=== PATIENT | male | born 1945 | race Caucasian/White ===

== ENCOUNTER 2019-09-22 16:02 | Observation (INO) | payer MEDICARE ==
--- NOTE | ~2019-09-22 | HEMODYNAMI ---
PATIENT:RENETTA SOBORNE MEDICAL RECORD: [id number] : 41 LOCATION:[facility] D2120 ADMISSION DATE: 09/22/19 Generatedon:09/23/201915:40 Patient name: RENETTA OSBORNE Patient #: [id number] : 1945 Date of study: 09/23/2019 Page: Of Hemodynamic Procedure Report Patient Data Patient Demographics Procedure consent was obtained First Name: RENETTA Gender: Male Last Name: [place] : 1945 Patient #: [id number] Age: 73 year(s) Race: SSN: [id number] Additional ID: [id number] Contact details Address: [place] [address] State: [place] City: [place] Zip code: [address] Admission Admission Data Admission Date: 09/22/2019 Admission Time: 16:02 Arrival Date: 09/23/2019 Arrival Time: 16:02 Admit Source: Other Insurance Payor: Medicare Room #: D.2120 [facility] #: [id number] Weight (lbs.): 171.96 Weight (kg.): 78 Lab Results Lab Result Date: 09/23/2019 Lab Result Time: 0:00 Biochemistry Name Units Result Min Max BUN mg/dl 16 --(---*)-- 7 18 Creatinine mg/dl 1.3 --(---*)-- 0.6 1.3 eGFR ml/min 57 *-(----)-- 90 120 NONAFRICAN CBC Name Units Result Min Max Hemoglobin g/dl 12.3 *-(----)-- 13.5 17.5 Procedure Procedure Types Cath Procedure Diagnostic Procedure C [facility] w/Coronaries Sedation Charges Moderate Sedation up to 15 minutes PCI Procedure Coronary Stent Coronary Stent Initial Hemochron ACT Test Procedure Description Procedure Date Procedure Date: 09/23/2019 Procedure Start Time: 15:17 Procedure End Time: 15:34 Procedure Staff Name Function Michael Boogie MD Performing Physician Yasmin Claudio RT Monitor Chaparrita Owusu RT Scrub Al Thibodeaux RN Nurse Procedure Data Cath Procedure Fluoroscopy Diagnostic fluoroscopy Total fluoroscopy Time: 2.6 time: 2.6 min min Diagnostic fluoroscopy Total fluoroscopy dose: 865 dose: 865 mGy mGy Contrast Material Contrast Material Type Amount (ml) Isovue 300 94 Entry Location Entry Primary Successful Side Size Upsize Upsize Entry Closure Succes sful Closure Location (Fr) 1 (Fr) 2 (Fr) Remarks Device Remarks Femoral Right 5 Fr Exoseal artery Estimated blood loss: 5 ml Diagnostic catheters Device Type Used For End Catheter Placement MULTIPACK JL 4.0 5Fr Left Coronary catheter Angiography MULTIPACK 3DRC 5Fr Right Coronary catheter Angiography MULTIPACK Pigtail 5 Fr LV Angiography catheter Procedure Complications No complications Procedure Medications Medication Administration Route Dosage 0.9% NaCl I.V. 100 ml/hr Oxygen etCO2 Nasal cannula 2 l/min Heparin Flush Bag added to field 2 bags (1000units/500ml NS) Lidocaine 2% added to field 20 Versed I.V. 2 mg Fentanyl I.V. 100 mcg Heparin Bolus I.V. 5000 units Integrilin (Bolus I.V. 6.8 ml 2mg/ml) Integrilin (Bolus wasted 3.2 ml 2mg/ml) Vasotec I.V. 2.5 mg Plavix P.O. 150 mg Hemodynamics Rest HGB: 12.3 (g/dl) Heart Rate: 54 (bpm) Pressure Samples Time Site Value (mmHg) Purpose Heart Use Rate(bpm) 15:23 LV 206/12,18 Snapshot 74 15:23 AO 186/72(114) Pullback 68 15:23 LV 192/15,22 Pullback 68 Gradients Valve Time Site 1 Site 2 Mean SEP/DFP Peak To Heart Use (mmHg) (sec/min) Peak Rate (mmHg) (bpm) Aortic 15:23 LV AO 11 21 6 68 192/15,22 186/72(114) Calculations Valve P-P Mean Valve Index Valve Source Name Gradient Area Flow (cm2) Aortic 6 11 6 11 Snapshots Pre Cath Intra NCS Post Cath Vital Signs Time Heart Resp SPO2 etCO2 NIBP (mmHg) Rhythm Pain Sedation Rate (ipm) (%) (mmHg) Status Level (bpm) 15:03:46 53 16 100 35.9 201/83(162) NSR 0 (11) 10(A) , No pain 15:08:08 55 25 100 36.7 175/85(148) NSR 0 (11) 10(A) , No pain 15:13:26 58 14 99 29.9 163/78(134) NSR 0 (11) 10(A) , No pain 15:17:48 54 8 96 36.7 181/78(165) NSR 0 (11) 9(A) , No pain 15:22:10 66 10 98 41.2 178/85(148) NSR 0 (11) 9(A) , No pain 15:26:38 65 17 99 9.7 176/75(143) NSR 0 (11) 9(A) , No pain 15:31:03 64 14 99 41.9 169/78(143) NSR 0 (11) 10(A) , No pain Medications Time Medication Route Dose Verified Delivered Reason Notes Effectiveness by by 15:05:01 0.9% NaCl I.V. 100 Al Al Per physician ml/hr Morelia Thibodeaux RN RN 15:05:12 Oxygen etCO2 2 Al Al for low 02 sats Nasal l/min Morelia Thibodeaux cannula RN RN 15:05:53 Heparin Flush added 2 Al Al used for Bag to bags Morelia Thibodeaux procedure (1000units/500ml [facility] RN RN NS) 15:06:04 Lidocaine 2% added 20ml Al Al for local to vial Morelia Thibodeaux anesthetic field RN RN 15:14:29 Versed I.V. 2 mg Al Al for sedation Morelia Thibodeaux RN RN 15:14:37 Fentanyl I.V. 100 Al Al for sedation mcg Morelia Thibodeaux RN RN 15:28:02 Heparin Bolus I.V. 5000 Al Al for units Morelia Thibodeaux anticoagulation RN RN 15:28:18 Integrilin I.V. 6.8 Al Al for (Bolus 2mg/ml) ml Morelia Thibodeaux antiplatelet RN RN therapy 15:28:27 Integrilin wasted 3.2 Al Al to sharp's (Bolus 2mg/ml) ml Morelia Thibodeaux RN RN 15:32:41 Vasotec I.V. 2.5 Al Al for mg Morelia Thibodeaux hypertension RN RN 15:33:05 Plavix P.O. 150 Al Melendez for mg Morelia Thibodeaux antiplatelet RN RN therapy Procedure Log Time Note 14:43:25 Diagnostic Cath Status : Urgent 14:45:25 Informed consent obtained and on chart 14:51:04 Admit Source: Other 14:51:15 Arrival Date: 09/23/2019 4:02:00 PM 14:52:10 Patient Weight : 171.96 lbs 14:52:25 Insurance Payor : Medicare 14:53:39 Lab Result : BUN 16 mg/dl 14:53:39 Lab Result : Hemoglobin 12.3 g/dl 14:53:39 Lab Result : eGFR NONAFRICAN 57 ml/min 14:53:39 Lab Result : Creatinine 1.3 mg/dl 14:53:46 Procedure Status Urgent Heart Cath (IP). 14:53:47 Yasmin Claudio RT(R) sent for patient. Start room use. 14:53:48 Time tracking: Regular hours (M-F 7:00 - 5:00) 14:53:52 Plan of Care:Hemodynamics will remain stable., Cardiac rhythm will remain stable., Comfort level will be maintained., Respiratory function will remain adequate., Patient/ family verbilizes understanding of procedure., Procedure tolerated without complication., Recovers from procedure without complications.. 14:57:20 Patient received from Med II to CCL 2 Alert and oriented. Tansferred to table in Supine position. 15:01:17 Vital chart was started 15:01:32 Correct patient and procedure confirmed by team. 15:01:33 ECG and BP/O2 sat monitors applied to patient. 15:01:37 Baseline sample Acquired. 15:01:46 Rhythm: sinus rhythm 15:03:16 Full Disclosure recording started 15:03:19 H&P Date Dictated: 09/23/2019 New H&P dictated by physician.. 15:03:25 Pre-procedure instructions explained to patient. 15:03:25 Pre-op teaching completed and patient verbalized understanding. 15:03:27 Family in patients room. 15:03:29 Patient NPO since Midnight. 15:03:31 Is the patient allergic to Iodine/contrast media? No. 15:03:32 Was the patient premedicated? Yes 15:03:33 Is patient on blood thinner?Yes 15:03:35 ACC The patient was administered the following blood thiners within the last 24 hours: ACCPlavix 15:03:37 Patient diabetic? Yes. 15:03:39 If diabetic: On Metformin? Yes 15:03:46 If on Metformin: Last Dose? 09/22/2019 15:03:59 Previous problem with sedation/anesthesia? No ? 15:04:00 Snore? Yes 15:04:04 Sleep apnea? No 15:04:05 Deviated septum? No 15:04:07 Opens mouth fully? Yes 15:04:08 Sticks out tongue? Yes 15:04:13 Airway obstruction? Yes emphysema 15:04:16 Dentures? Yes intight 15:04:19 Pre procedure: right dorsailis pedis pulse 2+ Normal; easily identifiable; not easily obliterated 15:04:21 Pre procedure: left dorsailis pedis pulse 2+ Normal; easily identifiable; not easily obliterated 15:04:23 Patient pain scale 0/10 ?. 15:04:35 IV patent on arrival in left forearm with 0.9% NaCl at [facility]. 15:04:39 Lab results completed and on chart. 15:05:01 0.9% NaCl 100 ml/hr I.V. was administered by Al Thibodeaux RN; Per physician; Verbal order read back and verified. 15:05:12 Oxygen 2 l/min etCO2 Nasal cannula was administered by Al Thibodeaux RN; for low 02 sats; Verbal order read back and verified. 15:05:53 Heparin Flush Bag (1000units/500ml NS) 2 bags added to field was administered by Al Thibodeaux RN; used for procedure; Verbal order read back and verified. 15:06:04 Lidocaine 2% 20ml vial added to field was administered by Al Thibodeaux RN; for local anesthetic; Verbal order read back and verified. 15:07:34 Right groin area was prepped with chlora-prep and draped in sterile fashion 15:07:35 Alarms reviewed by R. N. 15:07:35 Sharps counted by scrub and verified by R.N. 15:07:36 Physician arrived 15:07:36 --------ALL STOP TIME OUT------ 15:07:41 Final Timeout: patient, procedure, and site verified with staff and physician. All members of the team are in agreement. 15:07:43 Right groin site verified by team. 15:07:47 Fire Safety Assessment: A--An alcohol-based skin anteseptic being used preoperatively., C--Open oxygen or nitrous oxide is being used., D--An ESU, laser, or fiber-optic light is being used. 15:07:50 Physical assessment completed. ASA score P 2 - A patient with mild systemic disease as per Michael Boogie MD. 15:08:26 3a) 45-59 Moderately reduced kidney function. 15:09:11 Maximum allowable contrast dose (3.7 X eGFR X 0.75)157 ml. 15:09:15 Sedation plan: IV Moderate Sedation Medication:Versed, Fentanyl 15:09:20 Use device set Femoral Dx 15:09:21 ACIST Syringe (92686) opened to sterile field. 15:09:21 Bag Decanter (2002S) opened to sterile field. 15:09:22 Medline Cath Pack ([id number]) opened to sterile field. 15:09:23 ACIST Hand Control (93328) opened to sterile field. 15:09:26 ACIST Manifold (58226) opened to sterile field. 15:09:27 DIAGNOSTIC Multipack 5Fr catheter set (VZ2700) opened to sterile field. 15:09:31 Tegaderm 4 x 4 (1626W) opened to sterile field. 15:09:35 SHEATH 5FR [place] (PMZ218) opened to sterile field. 15:09:36 EMERALD Guide Wire (417-404) opened to sterile field. 15:10:24 Zero performed for pressure channel P1 15:14:29 Versed 2 mg I.V. was administered by Al Thibodeaux RN; for sedation; Verbal order read back and verified. 15:14:37 Fentanyl 100 mcg I.V. was administered by Al Thibodeaux RN; for sedation; Verbal order read back and verified. 15:17:25 Procedure started. 15:17:29 Local anesthetic to right femoral artery with Lidocaine 2% by Michael Boogie MD.INITIAL ACCESS ONLY 15:18:42 Zero performed for pressure channel P1 15:19:04 A 5 Fr sheath was inserted into the Right Femoral artery 15:20:10 A MULTIPACK JL 4.0 5Fr catheter was advanced over the wire and used for Left Coronary Angiography. 15:20:22 LCA angiography performed. 15:20:25 Injector settings: Ml/sec: 3, Volume: 6, 15:21:16 Catheter removed. 15:21:24 A MULTIPACK 3DRC 5Fr catheter was advanced over the wire and used for Right Coronary Angiography. 15:21:31 SHEATH 6FR [place] (XWU959) opened to sterile field. 15:21:40 WHISPER 300cm guide wire ([id number]) opened to sterile field. 15:21:41 INFLATOR Merit BasixCompak (DE7645) opened to sterile field. 15:22:19 RCA angiography performed. 15:22:26 Injector settings: Ml/sec: 3, Volume: 6, 15:22:29 ACCDominant side:Left 15:22:35 Catheter removed. 15:22:49 A MULTIPACK Pigtail 5 Fr catheter was advanced over the wire and used for LV Angiography. 15:23:32 LV hemodynamics recorded. 15:23:33 LV gram done using CORDOVA 15:23:36 Injector settings: Ml/sec: 5, Volume: 15, 15:23:43 EF : 55 % 15:23:55 Catheter removed. 15:23:58 Proceeding to intervention. 15:24:42 GUIDE 6FR XBLAD 4.0 catheter ([id number]) opened to sterile field. 15:24:51 6 Fr xblad 4 guide catheter was inserted over the wire 15:25:15 whisper wire advanced. 15:28:02 Heparin Bolus 5000 units I.V. was administered by Al Thibodeaux RN; for anticoagulation; Verbal order read back and verified. 15:28:18 Integrilin (Bolus 2mg/ml) 6.8 ml I.V. was administered by Al Thibodeaux RN; for antiplatelet therapy; Verbal order read back and verified. 15:28:27 Integrilin (Bolus 2mg/ml) 3.2 ml wasted was administered by Al Thibodeaux RN; to sharp's; Verbal order read back and verified. 15:29:14 ACC Pre-intervention CARLA Flow is 3. 15:29:22 Pre PCI Site: Ruby dCirc has 80% stenosis. 15:30:14 Place stent Inflation Number: 1 A MARK OTW 3.0 x 26 stent ([id number]) was prepped and advanced across the Dist CX 80. The stent was deployed at 14 BARI for 0:30 (min:sec) 0. 15:31:02 Stent catheter was removed intact over wire. 15:31:03 Wire removed. 15:31:03 Guide catheter removed. 15:31:36 EXOSEAL 6Fr (EX600) opened to sterile field. 15:31:42 ACC Post-intervention CARLA Flow is 3. 15:31:57 Sheath removed intact; hemostasis achieved with Exoseal to the Right Femoral artery. 15:31:59 Procedure ended.(Physican Out) 15:32:10 Fluoroscopy time 02.60 minutes. 15:32:21 Flurop Dose total: 865 15:32:21 Fluoroscopy dose: 865 mGy 15:32:38 Dose Area Product 29534 mGy/cm. 15:32:41 Vasotec 2.5 mg I.V. was administered by Al Thibodeaux RN; for hypertension; Verbal order read back and verified. 15:32:43 Contrast amount:Isovue 300 94ml. 15:32:46 Maximum allowable dose exceeded? No. 15:32:47 Sharps counted by scrub and verified by R.N. 15:32:48 Insertion/operative site no bleeding no hematoma. 15:32:51 Post-op/insertion site Right Femoral artery dressed using a 4 x 4 and Tegaderm. 15:32:58 Post procedure rhythm: unchanged. 15:33:02 Estimated blood loss: 5 ml 15:33:05 Plavix 150 mg P.O. was administered by Al Thibodeaux RN; for antiplatelet therapy; Verbal order read back and verified. 15:33:06 Post procedure instruction explained to patient.Patient verbalizes understanding. 15:33:07 Patient needs reinforcement of post procedure teaching. 15:33:21 Procedure type changed to Cath procedure, Diagnostic procedure, [facility], [facility] w/Coronaries, Sedation Charges, Moderate Sedation up to 15 minutes, PCI procedure, Coronary Stent, Coronary Stent Initial, Hemochron ACT Test 15:33:54 Procedure and supply charges have been captured, reviewed, submitted and are correct. 15:33:58 Procedure Complication : No complications 15:34:01 Vital chart was stopped 15:34:02 [facility] Findings: MVD- PCI performed (see procedure note) 15:34:05 Operative report dictated upon procedure completion. 15:34:06 See physician's report for complete and final results. 15:34:08 Report given to Med II. 15:34:10 Procedure ended. 15:34:10 Full Disclosure recording stopped 15:34:16 End room use (Document Last) 15:39:34 ACT drawn and resulted at 274 seconds. (normal therapeutic range 180-240 seconds). Intervention Summary Intervention Notes Time ActionType Lesion and Equipment Action# Pressure Duration Attributes Used 15:30:14 Place stent Dist CX MARK OTW 3.0 1 14 00:30 x 26 stent ([id number]) Device Usage Item Name Manufacture Quantity Catalog Hospital Part Current Mini mal Lot# / Number Charge Number Stock Stock Serial# Code ACIST Syringe Acist 1 17770 356402 232164 335807 20 (17165) Medical Systems Inc Bag Decanter Microtek 1 2001S 836916 36318 127049 5 (2001S) Medical Inc. Medline Cath Medline 1 [id number] 708841 41311 667389 5 Pack ([id number]) ACIST Hand Acist 1 64278 411839 788276 918007 5 Control Medical (21745) Systems Inc ACIST Acist 1 65557 174347 939276 869937 5 Manifold Medical (26645) Systems Inc DIAGNOSTIC Cardinal 1 BG3872 472798 64380 879807 30 Multipack 5Fr Health catheter set (RT5031) Tegaderm 4 x 3M 1 1626W 085596 826582 003935 5 4 (1626W) SHEATH 5FR Terumo 1 XGD960 707410 308913 994593 5 [place] (RQR032) EMERALD Guide Cardinal 1 502-455 725899 080425 371043 5 Wire Health (502-455) MULTIPACK JL Cardinal 1 226675 5 4.0 5Fr Health catheter MULTIPACK Cardinal 1 556884 5 3DRC 5Fr Health catheter SHEATH 6FR Terumo 1 YTR238 309646 918234 055089 40 [place] (NCA247) WHISPER 300cm Wei 1 [id number] 723106 319947 982194 5 guide wire Vascular (0398662RN) INFLATOR Merit 1 VN9211 266915 273248 403777 15 [facility] Medical BasixCompak (LQ0678) MULTIPACK Cardinal 1 286933 5 Pigtail 5 Fr Health catheter GUIDE 6FR Cardinal 1 37030301 577421 735385 575576 3 XBLAD 4.0 Health catheter (45328706) MARK OTW 3.0 Medtronic 1 [id number] 012549 5502805 379979 5 [id number] x 26 stent ([id number]) EXOSEAL 6Fr Cardinal 1 EX600 437509 414400 577266 10 (EX600) Health Signature Audit Shock Stage Time Signature Unsigned Intra-Procedure 09/23/2019 Yasmin Claudio 3:34:50 PM RT(R) Intra-Procedure 09/23/2019 Al 3:35:17 PM Morelia MODI Intra-Procedure 09/23/2019 Yasmin Claudio 3:40:10 PM RT(R) Signatures Performing Physician : Signature : Michael Boogie MD Date : Time : Monitor : Yasmin Claudio RT Signature : Date : Time : Nurse : Al Thibodeaux Signature : RN Date : Time : [facility] [address] [place] [address]
--- NOTE | 2019-09-22 16:20 | NUR ---
PATIENT ARRIVED TO UNIT AT THIS TIME. PATIENT AMBULATED ONTO UNIT A DIRECT ADMISSION FROM OFFICE IN [place] FOR COMPLAINTS OF NOT BEING ABLE TO GET A GOOD DEEP BREATH ASSOCIATED WITH SLIGHT PAIN IN LEFT SHOULDER AND LEFT BACK. PATIENT IS ALERT/ORIENTED, RESP EVEN AND UNLABORED AT THIS TIME. PATIENT HAS FAMILY AT BEDSIDE AT THIS TIME. NO DISTRESS.
--- NOTE | 2019-09-22 17:30 | NUR ---
20 GAUGE IV PLACED TO RIGHT HAND X 1 STICK. GOOD BLOOD RETURN, EASY FLUSH. TAPED,DATED AND SECURED. PATIENT TOLERATED IV PLACEMENT WELL.
[2019-09-22] MEDS ORDERED: FERROUS SULFAT325 MG PO (17:48)
[2019-09-22] MEDS ORDERED: PAXIL20 MG PO (17:51)
[2019-09-22] MEDS ORDERED: TRELEGY ELLIPT1 EACH INH (17:51)
[2019-09-22] MEDS ORDERED: COREG6.25 MG PO (17:52)
[2019-09-22] MEDS ORDERED: NORVASC5 MG PO (17:53)
[2019-09-22] MEDS ORDERED: GLUCOPHAGE1000 MG PO (17:53)
[2019-09-22] MEDS ORDERED: AVAPRO300 MG PO (17:54)
[2019-09-22] MEDS ORDERED: PLAVIX75 MG PO (17:54)
[2019-09-22] MEDS ORDERED: SINGULAIR10 MG PO (17:54)
[2019-09-22] MEDS ORDERED: PROTONIX40 MG PO (17:55)
[2019-09-22] MEDS ORDERED: PRAVACHOL20 MG PO (17:55)
[2019-09-22] MEDS ORDERED: NIASPAN750 MG PO (17:56)
[2019-09-22] MEDS ORDERED: VITAMIN D5000 UNI1 PO (17:56)
[2019-09-22] MEDS ORDERED: VENTOLIN HFA [SP8 GM INH (17:57)
--- NOTE | 2019-09-22 18:26 | NUR ---
IV FLUIDS INFUSING AT THIS TIME. NO DISTRESS.
[2019-09-22 18:40] LABS: BASOPHILS 0.2 % (0-2); EOSINOPHILS 4.7 % (0-7); HEMATOCRIT 37.3 % (42.0-54.0); IMMATURE GRANULOCYTES 0.3 % (0-5); LYMPHOCYTES 30.9 % (15-50); MCH 29.6 pg (26.0-34.0); MCHC 32.2 g/dL (31.0-37.0); MCV 91.9 fL (80.0-100.0); MEAN PLATELET VOLUME 10.4 fL (7.4-10.4); MONOCYTES 6.7 % (2-11); NEUTROPHILS 57.2 % (40-80); PLATELET COUNT 219 10x3/uL (130-400); RBC 4.06 10x6/uL (4.20-6.10); RDW 13.7 % (11.5-14.5)
--- NOTE | 2019-09-22 18:42 | NUR ---
EKG COMPLETED AND PLACED ON CHART.
[2019-09-22 19:06] LABS: CALCIUM 8.4 mg/dL (8.5-10.1); CREATININE - SERUM 1.3 mg/dL (0.6-1.3); MAGNESIUM - SERUM 1.2 mg/dL (1.8-2.4); PHOSPHOROUS 2.2 mg/dL (2.5-4.9)
--- NOTE | 2019-09-22 19:46 | NUR ---
REPORT RECEIVED AND ROUNDING COMPLETE. PATIENT LAYING IN BED IN SUPINE POSITION WATCHING TV, FAMILY AT BEDSIDE. PATIENT IS REQUESTING SOMETHING FOR SINUS DRAINAGE. WILL FOLLOW UP WITH THIS. NO OTHER NEEDS AT THIS TIME. PATIENT IS A&O X4 AND SHOWS NO S/SX OF DISTRESS. PIV TO THE RIGHT HAND WITH FLUIDS RUNNING AT THIS TIME. CALL LIGHT WTIHIN REACH AND BED IN LOWEST LOCKED POSITION.
[2019-09-22 20:29] VITALS: BP 175/60
[2019-09-22 20:53] LABS: CREATINE KINASE 97 UL (21-232)
[2019-09-22 21:02] LABS: TROPONIN-I < 0.017 ng/mL (0.000-0.060)
[2019-09-23 00:33] VITALS: BP 125/44
[2019-09-23 01:05] LABS: CKMB 0.7 U/L (0.0-3.6); CREATINE KINASE 85 UL (21-232); TROPONIN-I < 0.017 ng/mL (0.000-0.060)
[2019-09-23 05:51] VITALS: BP 134/55
--- NOTE | 2019-09-23 06:37 | NUR ---
0600 EKG MACHINE NOT ON FLOOR TO DO 0600 EKG SO I HAD APPLIQUE CUTTER PRINT ONE OFF.
[2019-09-23 07:14] LABS: BASOPHILS 0.2 % (0-2); EOSINOPHILS 4.4 % (0-7); HEMATOCRIT 38.5 % (42.0-54.0); HEMOGLOBIN 12.3 g/dL (13.5-17.5); IMMATURE GRANULOCYTES 0.2 % (0-5); LYMPHOCYTES 29.6 % (15-50); MCH 29.1 pg (26.0-34.0); MCHC 31.9 g/dL (31.0-37.0); MCV 91.2 fL (80.0-100.0); MEAN PLATELET VOLUME 10.5 fL (7.4-10.4); MONOCYTES 7.9 % (2-11); NEUTROPHILS 57.7 % (40-80); PLATELET COUNT 221 10x3/uL (130-400); RBC 4.22 10x6/uL (4.20-6.10); RDW 13.9 % (11.5-14.5); WBC 5.4 10x3/uL (4.8-10.8)
[2019-09-23 07:36] LABS: INR 0.99 (0.85-1.17); PROTIME 13.1 SECONDS (11.6-15.0)
[2019-09-23 07:37] LABS: APTT 30.3 SECONDS (22.8-39.4)
[2019-09-23 07:57] LABS: CALC OSMOLALITY 288 mosm/kg (275-300); CALCIUM 8.1 mg/dL (8.5-10.1); CARBON DIOXIDE 26.7 mmol/L (21.0-32.0); CHLORIDE - SERUM 107 mmol/L (98-107); CHOL - HDL RATIO 4.8 ratio (2.3-4.9); CHOLESTEROL, TOTAL 133 mg/dL (0-200); CKMB 0.8 U/L (0.0-3.6); CREATINE KINASE 82 UL (21-232); CREATININE - SERUM 1.3 mg/dL (0.6-1.3); GLUCOSE 152 mg/dL (74-106); HDL CHOLESTEROL 28 mg/dL (32-96); LDL CHOLESTEROL 71 mg/dL (0-100); LDL-HDL RATIO 2.5 ratio (1.5-3.5); MAGNESIUM - SERUM 1.3 mg/dL (1.8-2.4); POTASSIUM - SERUM 3.9 mmol/L (3.5-5.1); PRO BNP 243 pg/mL (0-450); SODIUM 143 mmol/L (136-145); TRIGLYCERIDE 174 mg/dL (30-200); TROPONIN-I < 0.017 ng/mL (0.000-0.060); UREA NITROGEN 16 mg/dL (7-18); eGFR NON AFRICAN AMERICAN 57 mL/min (90-120)
[2019-09-23 08:00] LABS: PHOSPHOROUS 2.9 mg/dL (2.5-4.9)
[2019-09-23 09:23] LABS: CHOL - HDL RATIO 5.3 ratio (2.3-4.9); LDL-HDL RATIO 2.9 ratio (1.5-3.5)
[2019-09-23 09:24] VITALS: BP 164/65
[2019-09-23 12:15] VITALS: Wt 78.2 kg
[2019-09-23 13:06] VITALS: BP 149/62
--- NOTE | 2019-09-23 16:00 | NUR ---
PT RETURN FROM EXERCISE SCIENTIST. AAO. NO S/S OF DISTRESS. RIGHT FEM CATH SITE C/D/I WITH NO S/S OF HEMATOMA PRESENT. NS INFUSING @200ML/HR VIA R.HAND PIV. WILL CTM.
[2019-09-23 18:00] VITALS: BP 148/63
--- NOTE | 2019-09-23 19:40 | NUR ---
RECEIVED BEDSIDE REPORT. PATIENT IS ALERT AND ORIENTED, RESTING COMFORTABLY IN BED. RESPIRATIONS ARE EVEN AND UNLABORED. NO S/S OF DISTRESS. NO C/O PAIN. CALL LIGHT WITHIN REACH. WILL CPOC.
[2019-09-23 20:00] VITALS: BP 135/50
[2019-09-24] VITALS: BP 134/56
--- NOTE | 2019-09-24 01:04 | NUR ---
PATIENT IS RESTING COMFORTABLY IN BED. RESPIRATIONS ARE EVEN AND UNLABORED. NO S/S OF DISTRESS. NO C/O PAIN. CALL LIGHT WITHIN REACH. WILL CPOC.
--- NOTE | 2019-09-24 03:35 | NUR ---
PATIENT RESTING COMFORTABLY IN BED. RESPIRATIONS ARE EVEN AND UNLABORED. NO S/S OF DISTRESS. NO C/O PAIN. CALL LIGHT WITHIN REACH.
[2019-09-24 04:00] VITALS: BP 145/65
[2019-09-24 06:41] LABS: BASOPHILS 0.2 % (0-2); HEMATOCRIT 35.3 % (42.0-54.0); HEMOGLOBIN 11.1 g/dL (13.5-17.5); IMMATURE GRANULOCYTES 0.2 % (0-5); LYMPHOCYTES 24.3 % (15-50); MCH 28.7 pg (26.0-34.0); MCHC 31.4 g/dL (31.0-37.0); MCV 91.2 fL (80.0-100.0); MEAN PLATELET VOLUME 10.8 fL (7.4-10.4); MONOCYTES 8.2 % (2-11); NEUTROPHILS 64.1 % (40-80); PLATELET COUNT 205 10x3/uL (130-400); RBC 3.87 10x6/uL (4.20-6.10); WBC 6.3 10x3/uL (4.8-10.8)
[2019-09-24 06:50] LABS: ANION GAP 12.1 mmol/L (8-16); CARBON DIOXIDE 25.8 mmol/L (21.0-32.0); CREATININE - SERUM 1.2 mg/dL (0.6-1.3); MAGNESIUM - SERUM 1.3 mg/dL (1.8-2.4); POTASSIUM - SERUM 3.9 mmol/L (3.5-5.1)
[2019-09-24 09:56] VITALS: BP 142/52
[2019-09-24] MEDS ORDERED: BAYER CHEWABLE81 MG PO (10:28)
--- NOTE | 2019-09-24 11:03 | NUR ---
IV AND TELEMETRY DCD. DC PLANS GIVEN. UNDERSTANDING VOICED. WAITING FOR RIDE.
--- NOTE | 2019-09-24 12:06 | NUR ---
ESCORTED TO CAR BY W/C.
--- NOTE | 2019-09-25 15:26 | CN ---
PATIENT NAME:RENETTA OSBORNE MEDICAL RECORD: [id number] : 41 LOCATION:D. D.2120 ADMIT DATE: 09/22/19 ACCOUNT: [id number] CONSULTING PHYSICIAN: BALTAZAR DENNIS MD REFERRING PHYSICIAN: THEE POLLARD DO DATE OF CONSULTATION: 09/23/2019 HISTORY OF PRESENT ILLNESS: A 73-year-old gentleman with a known history of coronary artery disease status post intervention. He has done fairly well up until the last 2 weeks of progressive chest tightness and pressure with exertion, point of rest symptomology Sunday, presented to the primary care office who admitted. We are asked to see him for acute coronary syndrome. PAST MEDICAL HISTORY: Includes; 1. History of coronary artery disease as described above. 2. Hypertension. 3. Hyperlipidemia. 4. Diabetes mellitus. 5. Hypertension. ALLERGIES: None known. MEDICATIONS: Include metformin 1 gram b.i.d., montelukast at bedtime, Paxil 20 at bedtime, amlodipine 5 every day, pravastatin 80 at bedtime, Niacin ER 750 every day, Avapro 300 every day, Carvedilol 6.25 b.i.d., Plavix 75 every day, albuterol two puffs every 4 hours p.r.n. SOCIAL HISTORY: Nonsmoker, nondrinker. Easily able to care of all his ADLs except for the last 2 weeks. REVIEW OF SYSTEMS: The patient reports easy bruising but reports no swollen glands. The patient reports no fever, no night sweats, no significant weight gain, no significant weight loss. No significant exercise tolerance. The patient reports no dry eyes, no irritation, no vision change. Patient reports no difficulty hearing and no ear pain. Patient reports no frequent nose bleeds or nose and sinus problems. Patient reports on arm pain on exertion. No shortness of breath while lying down. No history of heart murmur. Patient reports no cough, no wheezing or coughing up blood. Patient reports no abdominal pain, no vomiting. Normal appetite. No diarrhea and not vomiting blood. No nausea and no constipation. Patient reports no incontinence. No difficulty urinating. No hematuria. No increased frequency. Patient reports no muscle aches. No weakness, no arthralgias, no back pain. No swelling of the extremities. Patient reports no abnormal mole, no jaundice, no rashes. Reports no loss of consciousness. No weakness and no numbness. No seizures, dizziness, or headaches. The patient reports no depression, no sleep disturbance, feeling safe in a relationship and no alcohol abuse. Patient reports on fatigue. Reports no runny nose or sinus pressure. No itching, no hives, and no frequent sneezing. PHYSICAL EXAMINATION: GENERAL: Pleasant, no acute distress, appears stated age. VITAL SIGNS: Blood pressure 134/55, pulse 64 and regular. HEENT: Normocephalic, atraumatic. NECK: No JVD or bruit. HEART: Regular. CONSULT REPORT [id number] RENETTA OSBORNE LUNGS: Good air excursion. ABDOMEN: Soft, nontender. EXTREMITIES: Pulses 2+. No edema. IMPRESSION: Acute coronary syndrome rapidly progressive at rest, class IV angina. PLAN: For angiography, intervention based on the above. TRANSINT:[id number] Voice Confirmation ID: [id number] DOCUMENT ID: [id number] BALTAZAR DENNIS MD at 1526 CC: [id number] DICTATION DATE: 09/23/19 0840 PSYCHOLOGICAL AIDE: 09/23/19 1514 DIS IN 09/24/19 [facility] [address] [place] [address]
--- NOTE | 2019-09-25 15:26 | OP ---
PATIENT NAME: RENETTA OSBORNE MEDICAL RECORD: [id number] :41 LOCATION:D.M2 D.0 ADMISSION DATE:09/22/19 SURGEON: BALTAZAR DENNIS MD DATE OF OPERATION: 09/23/2019 PROCEDURE: Left heart catheterization, selective coronary angiography, right femoral artery approach. CATHETERS: A 5-Georgian sheath, 5/4 left and right Andre, 5/4 pig. The procedure was well tolerated. The patient returned to arellano, sheath removed. ExoSeal device placed. FINDINGS: Left ventriculography in 30-degree CORDOVA view: Normal wall motion and normal systolic function. CORONARY ANATOMY: LEFT MAIN: Left main is free of disease. LAD: Free of disease in the diagonal system. CIRCUMFLEX: Has an OM with previously placed stent. It is widely patent; however, the [place] circumflex itself has a diffuse 90% stenosis in its mid portion. This is a left dominant system with the left side giving rise to PDA. RIGHT CORONARY ARTERY: Rudimentary, free of disease. IMPRESSION: Acute coronary syndrome, class I unstable angina secondary to circ disease. PLAN: Intervention momentarily. DESCRIPTION OF PROCEDURE: A 5-Georgian sheath was exchanged for a 6-Georgian sheath. XB LAD guiding catheter provided excellent guide catheter support followed by 300 cm Whisper wire. Stent deployed was a 3.0 x 26 mm Colby drug-eluting stent. A long length was used secondary to long way through the lesion. This showed excellent resolution of diffuse 90% stenosis, no significant residual. CARLA flow was 3 throughout the procedure. Sheath was closed with ExoSeal device. The patient was previously on Plavix. Heparin was used during the case. TRANSINT:[id number] Voice Confirmation ID: [id number] DOCUMENT ID: [id number] BALTAZAR DENNIS MD at 1526 CC: [id number] DICTATION DATE: 09/23/19 1543 SENIOR LINUX UNIX ADMINISTRATOR: 09/23/192201 DIS IN 09/24/19 [id number] [place] [address]
--- NOTE | 2019-09-25 16:00 | MORECARE ---
CASE MANAGEMENT DISCHARGE SUMMARY PATIENT: RENETTA LAURENT UNIT: [id number] ADM DATE: 09/22/19 AGE: 73 : 41 SEX: M ROOM/BED: D.2120 AUTHOR: CYNDI SCHNEIDER PHYSICIAN: REFERRING PHYSICIAN: THEE POLLARD DO DATE OF SERVICE: 09/25/19 Discharge Plan Patient Name: [facility]ENETTA [facility]URENT [facility] [facility] 1945 Planned Disposition: Home Anticipated Discharge Date: 09/24/19 Discharge Date: 09/24/2019 Expected LOS: 2 Initial Reviewer: [id number] Initial Review Date: 09/22/2019 Generated: 09/25/19 4:59 pm Coverage Notice Reviewer: [id number] Ellis Khalil Notice Issued Date-Time: 09/23/2019 16:40 Notice Type: Medicare Outpatient Observation Notice Notice Delivered To: Patient Relationship to Patient: Self Crm Marketing Manager Name: Renetta Laurent Delivery Method: HAND - Hand Delivered Kathie Days: Prior Verbal Notification: Recipient Understood Notice: Yes Recipient Signature: Yes Med Rec Note Co-signed by Attending: Coverage Notice Comment: BEGUM signed by patient. Declined his copy. Original to chart. Patient Name: RENETTA LAURENT Page [id number] at 1600 All edits/amendments must be made on the electronic document DICTATION DATE: 09/25/19 1559 REVENUE COLLECTOR: MICHAEL 09/25/19 1559 RPT#: [id number] DC DATE:09/24/19 STATUS: DIS IN [facility] [address] [place] [address] END OF REPORT
== END 2019-09-24 12:06 | disposition home or self-care (01) ==
LOC: OBSVTIME 16:02 → D.M2 16:02
PROVIDERS: Emergency Medicine; Internal Medicine Interventional Cardiology; ADMIT Family Medicine; ATTEND Family Medicine
DX: I25.119 Atherosclerotic heart disease of native coronary artery with unspecified angina pectoris (principal); I10 Essential (primary) hypertension; E78.5 Hyperlipidemia, unspecified; K21.9 Gastro-esophageal reflux disease without esophagitis; J44.9 Chronic obstructive pulmonary disease, unspecified; M19.90 Unspecified osteoarthritis, unspecified site; E11.40 Type 2 diabetes mellitus with diabetic neuropathy, unspecified
CPT/HCPCS: 93458; C9600

== ENCOUNTER → 2020-08-13 13:11 | Outpatient (CLI) | payer MEDICARE ==
[~2020-08-13 13:11] MED LIST: AVAPRO300 MG PO; BAYER CHEWABLE81 MG PO; COREG6.25 MG PO; FERROUS SULFAT325 MG PO; GLUCOPHAGE1000 MG PO; NIASPAN750 MG PO; NORVASC5 MG PO; PAXIL20 MG PO; PLAVIX75 MG PO; PRAVACHOL20 MG PO; PROTONIX40 MG PO; SINGULAIR10 MG PO; TRELEGY ELLIPT1 EACH INH; VENTOLIN HFA [SP8 GM INH; VITAMIN D5000 UNI1 PO
== END | disposition home or self-care (01) ==
LOC: D.RT 13:11
PROVIDERS: ATTEND Internal Medicine Pulmonary Disease
DX: J44.9 Chronic obstructive pulmonary disease, unspecified (principal)